=== PATIENT | female | born 1980 | race Caucasian/White ===

== ENCOUNTER 2019-06-29 16:22 | Emergency (ER) | payer OTHER ==
[~2019-06-29] VITALS: Ht 170.2 cm; Wt 77.1 kg
--- NOTE | 2019-06-29 16:40 | NUR ---
Patient came in to the er c/o "Cough/fever/chills/bodyaches on/off xcouple days". on room air, connected to the monitor and pulse ox. kept comfortable, will continue to monitor accordingly.
[2019-06-29 17:00] VITALS: BP 134/74
[2019-06-29] MEDS ORDERED: ALPRAZOLAM 0.5 MG TABLET PO ONE (17:30)
[2019-06-29 17:38] LABS: BASOPHILS # (AUTO) 0.1 /CMM (0.0-0.2); BASOPHILS % (AUTO) 0.8 % (0.0-2.0); EOSINOPHILS % (AUTO) 1.1 % (0.0-6.0); HEMATOCRIT 41 % (33-45); HEMOGLOBIN 13.8 g/dL (11.5-14.8); LYMPHOCYTES # (AUTO) 2.2 /CMM (0.8-4.8); MEAN CORPUSCULAR HGB CONC 34 g/dl (31.0-36.0); MEAN CORPUSCULAR VOLUME 85 fL (82-100); MONOCYTES # (AUTO) 0.7 /CMM (0.1-1.30); MONOCYTES % (AUTO) 10.1 % (2.0-12.0); NEUTROPHILS # (AUTO) 3.9 /CMM (1.8-8.9); PLATELET COUNT (AUTO) 266 /CMM (150-450); RED BLOOD CELL COUNT(AUTO) 4.79 MIL/uL (4.0-5.2)
[2019-06-29] MEDS ORDERED: ALPRAZOLAM 0.5 MG TABLET ONE (17:45)
[2019-06-29 17:46] LABS: CALCIUM, SERUM 9.8 mg/dL (8.5-10.1); POTASSIUM 3.4 mmol/L (3.5-5.1)
[2019-06-29 19:25] LABS: ABG BASE EXCESS 1.4 mmol/L; ABG OXYGEN SATURATION 98.2 % (92.0-98.5); ABG PCO2 18.7 mmHg (35.0-45.0); ABG PH 7.647 (7.350-7.450); ABG PO2 132.7 mmHg (75.0-100.0); COHb 0.3 % (0.5-1.5); MetHb 0.4 % (0.0-1.5); O2Hb 97.5 % (94.0-97.0); SITE, ABG Right Radial
--- NOTE | 2019-06-29 19:31 | NUR ---
report given to Rickey BRIAN for jenn
--- NOTE | 2019-06-29 20:31 | NUR ---
Patient discharged to home in stable condition. Written and verbal after care instructions given. Patient verbalizes understanding of instruction. IV removed. Catheter intact and site benign. Pressure and 4x4 applied to site. No bleeding noted.
== END 2019-06-29 20:31 | disposition home or self-care (01) ==
LOC: ER 16:24
DX: F41.9 Anxiety disorder, unspecified (principal); R06.02 Shortness of breath; G43.909 Migraine, unspecified, not intractable, without status migrainosus
CPT/HCPCS: 36415; 36600; 71045-TC; 80048-TC; 82803-TC; 85025-TC

== ENCOUNTER 2019-07-02 08:29 | Emergency (ER) | payer OTHER ==
[~2019-07-02] VITALS: Ht 170.2 cm; Wt 73.5 kg
--- NOTE | 2019-07-02 08:33 | NUR ---
dr vicente at bedside for eval.
--- NOTE | 2019-07-02 08:38 | NUR ---
pt bibra from home to er bed 07. here for cough and shortness of breath. 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 awaiting md esteban.
--- NOTE | 2019-07-02 08:45 | NUR ---
radiology at bedside for chest xray.
[2019-07-02] MEDS ORDERED: LORAZEPAM 1 MG TABLET ONE (09:02)
[2019-07-02] MEDS: LORAZEPAM 1 MG TABLET PO ONE (09:05)
[2019-07-02] MEDS ORDERED: NARA2.5T2 PO (09:16)
[2019-07-02] MEDS ORDERED: AMPH10TA4 PO (09:16)
[2019-07-02] MEDS ORDERED: LAMO100T17 PO (09:16)
[2019-07-02] MEDS ORDERED: ALPR1TAB7 PO (09:16)
[2019-07-02 09:22] LABS: CALCIUM, SERUM 9.6 mg/dL (8.5-10.1); CREATININE 1.1 mg/dL (0.6-1.3); POTASSIUM 3.4 mmol/L (3.5-5.1)
--- NOTE | 2019-07-02 09:25 | NUR ---
MOVE SHEET SUBMITTED TO ADMITTING AND CALLED FOR TELE BED.
[2019-07-02 09:27] LABS: ALBUMIN 4.4 g/dL (3.4-5.0); BILIRUBIN,TOTAL 0.5 mg/dL (0.2-1.0); TOTAL PROTEIN, SERUM 7.6 g/dL (6.4-8.2)
--- NOTE | 2019-07-02 09:32 | NUR ---
URSULA STROUD FOR PT. LEFT CONTACT # [phone]
[2019-07-02 09:38] LABS: BASOPHILS % (AUTO) 0.6 % (0.0-2.0); EOSINOPHILS % (AUTO) 2.2 % (0.0-6.0); HEMATOCRIT 40 % (33-45); HEMOGLOBIN 13.4 g/dL (11.5-14.8); LYMPHOCYTES # (AUTO) 1.9 /CMM (0.8-4.8); LYMPHOCYTES % (AUTO) 24.6 % (20.0-44.0); MEAN CORPUSCULAR HGB CONC 34 g/dl (31.0-36.0); MEAN CORPUSCULAR VOLUME 86 fL (82-100); MONOCYTES # (AUTO) 0.5 /CMM (0.1-1.30); MONOCYTES % (AUTO) 6.4 % (2.0-12.0); NEUTROPHILS # (AUTO) 5.1 /CMM (1.8-8.9); NEUTROPHILS % (AUTO) 66.2 % (43.0-81.0); PLATELET COUNT (AUTO) 226 /CMM (150-450); RED BLOOD CELL COUNT(AUTO) 4.61 MIL/uL (4.0-5.2); WHITE BLOOD COUNT (AUTO) 7.7 K/uL (4.3-11.0)
--- NOTE | 2019-07-02 10:04 | NUR ---
BED 107
[2019-07-02] MEDS ORDERED: ALBU8.5H8 IH (10:44)
--- NOTE | 2019-07-02 11:23 | NUR ---
Patient discharged to home in stable condition. Written and verbal after care instructions given. Patient verbalizes understanding of instruction.IV removed. Catheter intact and site benign. Pressure and 4x4 applied to site. No bleeding noted.
[2019-07-02 11:26] VITALS: BP 121/64
== END 2019-07-02 11:26 | disposition home or self-care (01) ==
LOC: ER 08:32
DX: J06.9 Acute upper respiratory infection, unspecified (principal); F41.9 Anxiety disorder, unspecified; Z60.2 Problems related to living alone; Z79.899 Other long term (current) drug therapy; Z20.828 Contact with and (suspected) exposure to other viral communicable diseases
CPT/HCPCS: 0099U; 36415; 71045; 80053; 85025; 87804 ×2; 93005; 99285